=== PATIENT | male | born 1945 | race Caucasian/White ===

== ENCOUNTER 2019-03-24 09:26 | Observation (INO) ==
[2019-03-24] MEDS ORDERED: ASPIRIN 81 MG TAB.CHEW PO ONE (09:38)
[2019-03-24] MEDS: NITROGLYCERIN 0.4 MG/TAB BTL SL ONE ×2 (09:50→10:19)
[2019-03-24 09:54] LABS: Hematocrit 39.3 % (42.0-52.0); Hemoglobin 13.4 gm/dL (13.5-18.0); Mean Cell Volume 93.1 fl (78-100); Mean Corpuscular Hemoglobin 31.8 pg (27-31); Mean Corpuscular Hgb Conc 34.1 g/dl (32-36); Mean Platelet Volume 11.1 fl (8-11.3); Neutrophil # 3.4 K/mm3 (1.3-6.0); Neutrophil % 54.6 % (42-75.0); Platelet Count 224 K/mm3 (150-450); Red Blood Count 4.22 M/mm3 (4.7-6.0); Red Cell Distribution Width 13.9 % (11.5-14.0); White Blood Count 6.3 K/mm3 (4.0-10.5)
[2019-03-24 10:00] LABS: Prothrombin Time (Patient) 24.2 Seconds (9.1-10.7)
[2019-03-24 10:02] LABS: INR 2.53 INR (0.92-1.08)
[2019-03-24 10:10] LABS: ALT 21 U/L (19-67); AST 18 U/L (0-48); Albumin * 3.9 gm/dl (3.4-5.0); Alkaline Phosphatase * 72 U/L (50-170); Anion Gap 16.8 mmol/L (6.8-13.8); BUN/Creatinine Ratio 16.2 (9.0-21.6); Bilirubin, Total 0.5 mg/dL (0.0-1.1); Blood Urea Nitrogen 21 mg/dL (6-23); Ca. Corrected For Albumin 9.1 mg/dL (8.4-10.2); Calcium * 9.3 mg/dL (7.9-10.9); Carbon Dioxide 23.3 mmol/L (24-32.6); Chloride 108 mmol/L (97-106); Glucose * 135 mg/dL (70-110); Potassium 4.1 mmol/L (3.4-4.6); Sodium 144 mmol/L (132-142); Total Protein 6.9 gm/dL (6.2-8.2); Troponin I Less than 0.017 ng/mL (0.00-0.10)
--- NOTE | 2019-03-24 10:56 | ERNOTE ---
Chest Pain/Cardiac HPI Date of Service: 03/24/19 Chief Complaint: Chest Pain Time Seen by Provider: 03/24/19 09:36 Source: patient Exam Limitations: no limitations Immunizations: IMMUNIZATION HX History of Influenza Vaccine Yes Hx Pneumococcal Vaccination Yes Allergies/Adverse Reactions: Allergies simvastatin Allergy (Mild, Verified 03/24/19 09:38) BREAKS OUT Home Medications: HOME MEDICATIONS Aspirin [Aspir 81] 81 mg PO DAILY 08/20/12 [Last Taken Unknown] Pantoprazole Sodium [Protonix] 40 mg PO DAILY 04/04/15 [Last Taken Unknown] Ubidecarenone [Co Q-10] 100 mg PO DAILY 12/04/15 [Last Taken Unknown] Metoprolol Succinate [Toprol Xl] 25 mg PO DAILY 09/24/16 [Last Taken 09/29/16 16:00] Multivitamin [One Daily Essential] 1 ea PO DAILY 09/24/16 [Last Taken Unknown] Fenofibrate Nanocrystallized [Tricor] 145 mg PO DAILY 10/08/16 [Last Taken Unknown] Tamsulosin HCl [Flomax] 0.4 mg PO DAILY@1800 01/17/17 [Last Taken Unknown] Warfarin Sodium [Coumadin] 7 mg PO DAILY 05/20/17 [Last Taken Unknown] Rosuvastatin Calcium [Crestor] 40 mg PO DAILY 08/23/18 [Last Taken Unknown] alirocumab 75 mg/mL subcutaneous pen injector 75 mg SUBCUT Q14D #1 ml 03/23/19 [Last Taken Unknown] omega-3 fatty acids 1,000 mg capsule 1,000 mg PO BID 03/23/19 [Last Taken Unknown] Narrative: Patient presents to the ED for chest and arm pain. This started today. He has had some stuttering pain over the last several days. Some central pain with radiation to both arms. He thinks this is like his prior cardiac pain. Some SOB with exertion but not worse than normal. No N/V/diaphoresis. No fever or cough. No calf pain or leg swelling. Timing: other - constant since this am Severity/Quality: moderate Location: central Chest Pain Radiation: arms Activities at Onset: none Modifying Factors - Improves: Absent: antacids Modifying Factors - Worsens: Present: nothing Nitro Today/Relief: no nitro taken today Associated Symptoms: Present: shortness of breath. Absent: syncope, cough, palpitations, nausea, vomiting, abdominal pain, weakness Prior Chest Pain/Cardiac Workup: Reports: heart attack Prior Treatment: Denies: currently on antibiotics Review of Systems - Review of Systems Constitutional: Absent: fever EYE: Present: no symptoms reported ENT: Absent: nose congestion Respiratory: Present: See HPI Cardiology: Present: See HPI Gastrointestinal/Abdominal: Absent: abdominal pain Genitourinary: Absent: dysuria All Other Systems: All systems neg except as marked Medical History (Updated 03/21/19 @ 14:48 by Katrin Long [facility]) CVA (cerebral vascular accident) (Resolved) CAD (coronary artery disease) (Chronic) Vitreous hemorrhage, right eye (Acute) Onset Date: 12/06/16 Posterior vitreous detachment, right eye (Acute) Onset Date: ~12/06/16 Ischemic stroke (Acute) Onset Date: 12/06/16 Insomnia (Acute) Onset Date: Unknown Unspecified HTN (hypertension) (Chronic) Onset Date: 10/24/11 Hyperlipidemia (Chronic) Onset Date: Unknown Depression (Acute) Onset Date: Unknown Carotid occlusion, right (Acute) Onset Date: Unknown Atherosclerosis (Acute) Onset Date: Unknown Carotid AAA (abdominal aortic aneurysm) (Acute) Onset Date: 12/06/16 CVA (cerebral vascular accident) Onset Date: ~2003 After bypass Clavicle fracture Onset Date: ~1974 Measles Onset Date: Unknown Pelvic fracture Onset Date: ~1971 Rubella Onset Date: Unknown Surgical History: Surgical History (Updated 07/07/18 @ 06:27 by Maday Singh) Heart catheterization Onset Date: ~2004 History of back surgery Onset Date: ~2000 Dr. Cespedes - L5 History of esophagogastroduodenoscopy (EGD) Onset Date: 03/26/10 w/biopsy Dr. Burleson 03/16/07 Mild reflux esophagitis. 03/26/10 Benign squamous mucosa. History of stress test Onset Date: 08/31/[address] Sinus rhythm[address] No new ST-T wave changes. Normal myocardial perfusion stress test with EF of 59%. History of transesophageal echocardiography (NATASHA) Onset Date: 09/01/17 Normal. Did find a distal AAA measurement of 3.0 cm x 2.9 cm. Hx of CABG Onset Date: ~2003 Kathy - [facility] Hx of cholecystectomy Onset Date: 03/13/09 Dr. Iris anderson Hx of colonoscopy Onset Date: ~09/30/16 w/biopsy Dr. Burleson 03/16/07 Tubular adenoma. 03/26/10 Tubular adenoma, hyperplastic polyp, small internal hemorrhoid. 09/30/16 Tubular adenoma x3. Recheck 3 years. Hx of hernia repair Onset Date: 09/26/10 Dr. Simmons - left inguinal hernia w/mesh plug and patch Hx of tonsillectomy Onset Date: ~1959 Stent placement Onset Date: ~07/2014 Dr. Mitchell - [place] - Bilat legs - one stent each leg Family History: Family History (Updated 07/07/18 @ 06:31 by Maday Singh) Sister Sarcoma Tumor on leg Father , Age 83 COPD (chronic obstructive pulmonary disease) Leukemia Mother , Age 80 Cancer Breast Grandmother , (Maternal) Heart disease Grandmother , (Paternal) Heart disease Grandfather , (Maternal) Heart disease Grandfather , (Paternal) Heart disease Social History: Preferred Language [place] Smoking Status Former smoker Have you smoked in the past 12 No months Abuse History No History of abuse Psych History Hx of Depression Alcohol Use rarely Drug Use none (Last Updated 03/23/19 @ 12:17 by Chelsie Kidd MD) No Social History Section defined Physical Exam - Physical Exam General Appearance: Present: alert, no apparent distress Head Exam: Present: normal inspection, no evidence of injury Eye Exam: Normal inspection: bilateral, PERRL: bilateral Ears, Nose, Throat: Present: normal ENT inspection Neck: Present: normal inspection Respiratory: Present: no respiratory distress, normal breath sounds, no accessory muscle use, lungs clear Cardiovascular/Chest: Present: regular rate, rhythm, normal peripheral pulses Gastrointestinal/Abdominal: Present: normal bowel sounds, nontender, soft Back Exam: Present: normal range of motion Extremity Exam: Present: non-tender, normal range of motion Neurological Exam: Present: alert, no motor/sensory deficits Skin Exam: Present: normal color, warm/dry Progress - Results and Orders Patient's Lab Results:: I have reviewed the patient's lab results. - Vital Signs Patient's Vital Signs:: I have reviewed the patient's vital signs. Vital Signs: Vital Signs 03/24/19 09:27 03/24/19 09:51 03/24/19 10:07 Temperature 36.6 C 36.6 C Pulse Rate 69 65 74 Respiratory Rate 14 14 14 Blood Pressure 162/98 H 162/98 H 135/67 O2 Sat by Pulse Oximetry 100 95 97 - EKG EKG #1 EKG: NSR EKG read: Interp. by me EKG Comments: NSR rate 65. Non-specific ST/T wave changes, no clear evidence of STEMI - X-Ray X-Ray #1 X-Ray: chest Interpretation: Interp. by me X-ray Comments: I reviewed official radiology report - Progress/Reassessment Chief Complaint: Chest Pain Progress Note-Subjective: 03/24/19 10:53 patient received ASA and SL NTG X2 with resolution of his pain. He thinks this may be due to his new medication Praluent. He noted some CP with this prior as well and thinks that may be whats going on. He did however tell me that this felt like his prior cardiac pain. With his extensive cardiac history and resolution with NTG he needs r/o and elects hospital rule ou. D/W Dr Hermosillo who will place him in observation. Departure Clinical Impression: Chest pain - Departure Disposition: Still a patient Condition: Stable Referrals: Chelsie Kidd MD [Primary Care Provider] -
--- NOTE | 2019-03-24 13:30 | HP ---
Chief Complaint - Chief Complaint Date of Service: 03/24/19 Time of Service: 12:05 Chief Complaint: Bilateral arm pain and mild chest tightness History of Present Illness: 73-year-old male with a past medical history of AAA, atherosclerosis, coronary artery disease, CVA, hypertension, depression, insomnia, right carotid occlusion presents with complaints of bilateral pain. He states he gave himself an injection of a pneumatic occasion for his cholesterol last night (Praluent). He felt fine after the injection but this morning he and his went to the grocery store and he began to have severe bilateral arm pain. He describes the pain as achy, 8 out of 10. Associated with mild chest tightness. He has his to drive home because of the pain and he later presented to the emergency department. In the ER troponin was negative, EKG showed nonspecific changes. He was admitted for chest pain observation. He states his called his electrical and instrument mechanic in relation to his symptoms and the electrical and instrument mechanic told him to discontinue the Praluent. Medical History (Updated 03/24/19 @ 10:56 by Hector Best MD) CVA (cerebral vascular accident) (Resolved) CAD (coronary artery disease) (Chronic) Vitreous hemorrhage, right eye (Acute) Onset Date: 12/06/16 Posterior vitreous detachment, right eye (Acute) Onset Date: ~12/06/16 Ischemic stroke (Acute) Onset Date: 12/06/16 Insomnia (Acute) Onset Date: Unknown Unspecified HTN (hypertension) (Chronic) Onset Date: 10/24/11 Hyperlipidemia (Chronic) Onset Date: Unknown Depression (Acute) Onset Date: Unknown Carotid occlusion, right (Acute) Onset Date: Unknown Atherosclerosis (Acute) Onset Date: Unknown Carotid AAA (abdominal aortic aneurysm) (Acute) Onset Date: 12/06/16 CVA (cerebral vascular accident) Onset Date: ~2003 After bypass Clavicle fracture Onset Date: ~1974 Measles Onset Date: Unknown Pelvic fracture Onset Date: ~1971 Rubella Onset Date: Unknown Surgical History: Surgical History (Updated 07/07/18 @ 06:27 by Maday Singh) Heart catheterization Onset Date: ~2004 2003, 2004 History of back surgery Onset Date: ~2000 Dr. Cespedes - [place] History of esophagogastroduodenoscopy (EGD) Onset Date: 03/26/10 w/biopsy Dr. Burleson 03/16/07 Mild reflux esophagitis. 03/26/10 Benign squamous mucosa. History of stress test Onset Date: 08/31/16 Sinus rhythm. No new ST-T wave changes. Normal myocardial perfusion stress test with EF of 59%. History of transesophageal echocardiography (NATASHA) Onset Date: 09/01/17 Normal. Did find a distal AAA measurement of 3.0 cm x 2.9 cm. Hx of CABG Onset Date: ~2003 X2 - [facility] Hx of cholecystectomy Onset Date: 03/13/09 Dr. Simmons - Lap justin Hx of colonoscopy Onset Date: ~09/30/16 w/biopsy Dr. Burleson 03/16/07 Tubular adenoma. 03/26/10 Tubular adenoma, hyperplastic polyp, small internal hemorrhoid. 09/30/16 Tubular adenoma x3. Recheck 3 years. Hx of hernia repair Onset Date: 09/26/10 Dr. Simmons - left inguinal hernia w/mesh plug and patch Hx of tonsillectomy Onset Date: ~1959 Stent placement Onset Date: ~07/2014 Dr. Mitchell - [place] - Bilat legs - one stent each leg Family History: Family History (Updated 07/07/18 @ 06:31 by Maday Singh) Sister Sarcoma Tumor on leg Father , Age 83 COPD (chronic obstructive pulmonary disease) Leukemia Mother , Age 80 Cancer Breast Grandmother , (Maternal) Heart disease Grandmother , (Paternal) Heart disease Grandfather , (Maternal) Heart disease Grandfather , (Paternal) Heart disease Social History: Preferred Language [place] Smoking Status Former smoker Have you smoked in the past 12 No months Abuse History No History of abuse Psych History Hx of Depression Alcohol Use rarely Drug Use none (Last Updated 03/23/19 @ 12:17 by Chelsie Kidd MD) No Social History Section defined Review Of Systems (GEN) - Review of Systems Generalized/Overall Review: Absent: Fever EENTM: Absent: Eye Pain, Ear Pain Respiratory: Absent: Shortness of Breath Cardiac: Present: Other - Chest tightness. Absent: Chest Pain Abdominal: Absent: Abdominal Pain Misc: All systems neg except as marked Immunizations: IMMUNIZATION HX History of Influenza Vaccine Yes Hx Pneumococcal Vaccination Yes Allergies/Adverse Reactions: Allergies Allergy/AdvReac Type Severity Reaction Status Date / Time simvastatin Allergy Mild BREAKS OUT Verified 03/24/19 09:38 Home Medications: HOME MEDICATIONS Aspirin [Aspir 81] 81 mg PO HS 08/20/12 [Last Taken Unknown] Pantoprazole Sodium [Protonix] 40 mg PO HS 04/04/15 [Last Taken Unknown] Ubidecarenone [Co Q-10] 100 mg PO DAILY 12/04/15 [Last Taken Unknown] Metoprolol Succinate [Toprol Xl] 25 mg PO HS 09/24/16 [Last Taken 09/29/16 16:00] Multivitamin [One Daily Essential] 1 ea PO HS 09/24/16 [Last Taken Unknown] Fenofibrate Nanocrystallized [Tricor] 145 mg PO HS 10/08/16 [Last Taken Unknown] Tamsulosin HCl [Flomax] 0.4 mg PO DAILY@1800 01/17/17 [Last Taken Unknown] Warfarin Sodium [Coumadin] 6 mg PO SUTUWETHSA@2100 05/20/17 [Last Taken Unknown] Rosuvastatin Calcium [Crestor] 40 mg PO HS 08/23/18 [Last Taken Unknown] alirocumab 75 mg/mL subcutaneous pen injector 75 mg SUBCUT Q14D #1 ml 03/23/19 [Last Taken Unknown] omega-3 fatty acids 1,000 mg capsule 1,000 mg PO BID 03/23/19 [Last Taken Unknown] Warfarin Sodium [Coumadin] 9 mg PO MOFR@209903/24/19 [Last Taken Unknown] Exam - Exam Vital Signs: Vital Signs - Last Taken Temp 36.6 C 03/24/19 09:51 Pulse 61 03/24/19 10:30 Resp 15 03/24/19 10:30 BP 129/70 03/24/19 10:30 Pulse Ox 97 03/24/19 10:30 Constitutional: Present: Alert, Cooperative, Well developed, Well nourished, No distress ENT Exam: Present: hearing grossly normal Eye Exam: bilateral eye: normal inspection Neck: Present: non-tender, supple, trachea midline. Absent: lymphadenopathy (R), lymphadenopathy (L) Back Exam: Present: normal inspection, no CVA tenderness, no vertebral tenderness Respiratory: Present: lungs clear, no respiratory distress, no accessory muscle use, No wheezing. Absent: rhonchi Cardiovascular/Chest: Present: normal peripheral pulses, regular rate, rhythm, no edema, no murmur Peripheral Pulses: dorsalis-pedis (R): 1+, dorsalis-pedis (L): 1+ Abdomen: Present: Normal bowel sounds, soft, nontender Extremity: Present: no pedal edema Skin Exam: Present: normal color, warm/dry Neurologic: Present: alert, normal mood/affect Appearance: Present: appropriate appearance, appropriate insight Eye contact: Present: cooperative Thoughts: Present: normal thought pattern, normal mood /affect Diagnostic Studies: Abnormal Lab Results 03/24/19 03/24/19 03/24/19 Range/Units 09:46 09:46 09:46 RBC 4.22 L (4.7-6.0) M/mm3 Hgb 13.4 L (13.5-18.0) gm/dL Hct 39.3 L (42.0-52.0) % MCH 31.8 H (27-31) pg Eosinophils % 3.7 H (0.0-3.0) % PT 24.2 H (9.1-10.7) Seconds INR (Anticoag Therapy) 2.53 H (0.92-1.08) INR Sodium 144 H (132-142) mmol/L Plasma Sodium 145 H (130-142) mmol/L Chloride 108 H (97-106) mmol/L Carbon Dioxide 23.3 L (24-32.6) mmol/L Anion Gap 16.8 H (6.8-13.8) mmol/L Est GFR (Non-Af Amer) 58 L D (60-130) mL/min Random Glucose 135 H (70-110) mg/dL Laboratory Results WBC 6.3 K/mm3 (4.0-10.5) 03/24/19 09:46 RBC 4.22 M/mm3 (4.7-6.0) L 03/24/19 09:46 Hgb 13.4 gm/dL (13.5-18.0) L 03/24/19 09:46 Hct 39.3 % (42.0-52.0) L 03/24/19 09:46 MCV 93.1 fl (78-100) 03/24/19 09:46 MCH 31.8 pg (27-31) H 03/24/19 09:46 MCHC 34.1 g/dl (32-36) 03/24/19 09:46 RDW 13.9 % (11.5-14.0) 03/24/19 09:46 Plt Count 224 K/mm3 (150-450) 03/24/19 09:46 MPV 11.1 fl (8-11.3) 03/24/19 09:46 Immature Gran % (Auto) 0.30 % (0.001-0.429) 03/24/19 09:46 Immature Gran # (Auto) 0.02 K/mm3 (0.000-0.0310) 03/24/19 09:46 54.6 % (42-75.0) 03/24/19 09:46 32.2 % (20-51) 03/24/19 09:46 8.4 % (0.0-9) 03/24/19 09:46 3.7 % (0.0-3.0) H 03/24/19 09:46 0.8 % (0.0-1.0) 03/24/19 09:46 Nucleated RBC % 0.0 k/mm3 (0-1) 03/24/19 09:46 3.4 K/mm3 (1.3-6.0) 03/24/19 09:46 2.02 k/mm3 (1.5-3.5) 03/24/19 09:46 0.5 k/mm3 (0.0-1.0) 03/24/19 09:46 0.2 k/mm3 (0.0-0.7) 03/24/19 09:46 Absolute Basophils 0.1 k/mm3 (0.0-0.1) 03/24/19 09:46 PT 24.2 Seconds (9.1-10.7) H 03/24/19 09:46 INR (Anticoag Therapy) 2.53 INR (0.92-1.08) H 03/24/19 09:46 Sodium 144 mmol/L (132-142) H 03/24/19 09:46 145 mmol/L (130-142) H 03/24/19 09:46 Potassium 4.1 mmol/L (3.4-4.6) 03/24/19 09:46 Chloride 108 mmol/L (97-106) H 03/24/19 09:46 Carbon Dioxide 23.3 mmol/L (24-32.6) L 03/24/19 09:46 16.8 mmol/L (6.8-13.8) H 03/24/19 09:46 BUN 21 mg/dL (6-23) 03/24/19 09:46 1.30 mg/dL (0.4-1.4) 03/24/19 09:46 Est GFR (Non-Af Amer) 58 mL/min (60-130) L D 03/24/19 09:46 16.2 (9.0-21.6) 03/24/19 09:46 135 mg/dL (70-110) H 03/24/19 09:46 Calcium 9.3 mg/dL (7.9-10.9) 03/24/19 09:46 Calcium Adj for Albumin 9.1 mg/dL (8.4-10.2) 03/24/19 09:46 0.5 mg/dL (0.0-1.1) 03/24/19 09:46 AST 18 U/L (0-48) 03/24/19 09:46 ALT 21 U/L (19-67) 03/24/19 09:46 72 U/L (50-170) 03/24/19 09:46 Less than 0.017 ng/mL (0.00-0.10) 03/24/19 09:46 6.9 gm/dL (6.2-8.2) 03/24/19 09:46 3.9 gm/dl (3.4-5.0) 03/24/19 09:46 Assessment/Plan - Narrative Narrative: 73-year-old male with a past medical history of AAA, atherosclerosis, coronary artery disease, CVA, hypertension, depression, insomnia, right carotid occlusion presents with complaints of bilateral pain. He states he gave himself an injection of a pneumatic occasion for his cholesterol last night (Praluent). He felt fine after the injection but this morning he and his went to the grocery store and he began to have severe bilateral arm pain. He describes the pain as achy, 8 out of 10. Associated with mild chest tightness. He has his to drive home because of the pain and he later presented to the emergency department. In the ER troponin was negative, EKG showed nonspecific changes. He was admitted for chest pain observation. He states his called his electrical and instrument mechanic in relation to his symptoms and the electrical and instrument mechanic told him to discontinue the Praluent. - Assessment/Plan (1) Chest pain Assessment: At this time he states his chest tightness has resolved and his arm pain has resolved. He received 2 doses of nitroglycerin in the emergency department. His electrical and instrument mechanic has told him to discontinue the Praluent. Trend troponins. Continue with telemetry. Problem: Acute (2) Bilateral arm pain Assessment: Likely secondary to Praluent. His has been touch with his electrical and instrument mechanic and he was told to discontinue the Praluent. Problem: Acute (3) GERD (gastroesophageal reflux disease) Problem: Chronic Qualifiers: (4) HTN (hypertension) Assessment: Stable resume home meds. Problem: Chronic Qualifiers: Hypertension type: essential hypertension (5) Hyperlipidemia Assessment: Stable resume home meds except for Praluent. His electrical and instrument mechanic wants him to discontinue it due to the bilateral arm pain he experienced today.. Problem: Chronic Qualifiers:
[2019-03-24] MEDS ORDERED: LISINOPRIL 5 MG TABLET PO SCH (16:15)
[2019-03-24] MEDS ORDERED: TAMSULOSIN HCL 0.4 MG CAP.SR.24H PO SCH (18:00)
[2019-03-24] MEDS ORDERED: LISINOPRIL 10 MG TABLET PO ONE (19:00)
[2019-03-24] MEDS: OMEGA-3 FATTY ACIDS 1 CAP CAPSULE PO SCH (20:22)
[2019-03-24] MEDS ORDERED: ROSUVASTATIN CALCIUM 20 MG TABLET PO SCH (21:00)
[2019-03-24] MEDS ORDERED: WARFARIN SODIUM 1 MG TABLET PO ONE (21:00)
[2019-03-24] MEDS ORDERED: FENOFIBRATE,MICRONIZED 134 MG CAPSULE PO SCH (21:00)
[2019-03-24] MEDS ORDERED: PANTOPRAZOLE SODIUM 40 MG TABLET.EC PO SCH (21:00)
[2019-03-24] MEDS ORDERED: MULTIVITAMINS 1 CAP CAPSULE PO SCH (21:00)
[2019-03-24] MEDS ORDERED: WARFARIN SODIUM PO SCH ×2 (21:00)
[2019-03-24] MEDS ORDERED: ASPIRIN 81 MG TABLET.DR PO SCH (21:00)
[2019-03-24] MEDS ORDERED: METOPROLOL SUCCINATE 25 MG TABLET.SA PO SCH (21:00)
[2019-03-25 05:46] LABS: Hematocrit 39.2 % (42.0-52.0); Mean Corpuscular Hemoglobin 31.2 pg (27-31); Mean Corpuscular Hgb Conc 33.2 g/dl (32-36); Mean Platelet Volume 10.9 fl (8-11.3); Neutrophil # 3.4 K/mm3 (1.3-6.0); Neutrophil % 49.2 % (42-75.0); Platelet Count 216 K/mm3 (150-450); Red Blood Count 4.17 M/mm3 (4.7-6.0); White Blood Count 6.9 K/mm3 (4.0-10.5)
[2019-03-25 06:09] LABS: Prothrombin Time (Patient) 25.5 Seconds (9.1-10.7)
[2019-03-25 06:14] LABS: Albumin * 3.6 gm/dl (3.4-5.0); Anion Gap 13.3 mmol/L (6.8-13.8); BUN/Creatinine Ratio 14.1 (9.0-21.6); Bilirubin, Total 0.5 mg/dL (0.0-1.1); Ca. Corrected For Albumin 8.9 mg/dL (8.4-10.2); Calcium * 8.9 mg/dL (7.9-10.9); Carbon Dioxide 25.9 mmol/L (24-32.6); Potassium 4.2 mmol/L (3.4-4.6); Total Protein 6.6 gm/dL (6.2-8.2)
[2019-03-25 06:21] LABS: INR 2.68 INR (0.92-1.08)
--- NOTE | 2019-03-25 08:23 | DS ---
(1) Chest pain Problem: Resolved (2) CAD (coronary artery disease) Problem: Chronic Qualifiers: Coronary Disease-Associated Artery/Lesion type: [place] artery [place] vs. transplanted heart: [place] heart Associated angina: without angina Qualified Code(s): I25.10 - Atherosclerotic heart disease of [place] coronary artery without angina pectoris (3) GERD (gastroesophageal reflux disease) Problem: Chronic Qualifiers: (4) HTN (hypertension) Problem: Chronic Qualifiers: Hypertension type: essential hypertension (5) CVA (cerebral vascular accident) Problem: Resolved Qualifiers: CVA mechanism: unspecified Qualified Code(s): I63.9 - Cerebral infarction, unspecified (6) AAA (abdominal aortic aneurysm) Problem: Chronic (7) Carotid occlusion, right Problem: Chronic Description of Stay: Solo Anthony is a 73-year-old male with a past medical history of AAA, atherosclerosis, coronary artery disease, CVA, hypertension, depression, insomnia, right carotid occlusion who was admitted on 03/24/2019 with complaints of bilateral arm pain. He states he gave himself an injection for his cholesterol last night (Praluent). He felt fine after the injection but this morning he and his went to the grocery store and he began to have severe bilateral arm pain. He described the pain as achy, 8 out of 10. Associated with mild chest tightness. He had his drive home because of the pain and then later went to our emergency department. In the ER troponin was negative, EKG showed nonspecific changes. He was admitted for chest pain observation. His called his shank breaker in relation to his symptoms and the shank breaker told him to discontinue the Praluent. as it can cause chest tightness and throat and trouble with breathing. His second set of troponin and EKG showed no changes and he has been chest pain freee overnight. He had a stress test by his shank breaker last July 2018 and was normal. He is stable to be discharged and to follow up with his PCP and shank breaker. Procedures Performed: none Results and Findings: Lab Pending Results 03/24/19 09:46: WBC 6.3, RBC 4.22 L, Hgb 13.4 L, Hct 39.3 L, MCV 93.1, MCH 31.8 H, MCHC 34.1, RDW 13.9, Plt Count 224, MPV 11.1, Immature Gran % (Auto) 0.30, Immature Gran # (Auto) 0.02, Neutrophils % 54.6, Lymphocytes % 32.2, Monocytes % 8.4, Eosinophils % 3.7 H, Basophils % 0.8, Nucleated RBC % 0.0, Neutrophils # 3.4, Lymphocytes # 2.02, Monocytes # 0.5, Eosinophils # 0.2, Absolute Basophils 0.1 03/24/19 09:46: Sodium 144 H, Plasma Sodium 145 H, Potassium 4.1, Chloride 108 H, Carbon Dioxide 23.3 L, Anion Gap 16.8 H, BUN 21, Creatinine 1.30, Est GFR (Non-Af Amer) 58 L D, BUN/Creatinine Ratio 16.2, Random Glucose 135 H, Calcium 9.3, Calcium Adj for Albumin 9.1, Total Bilirubin 0.5, AST 18, ALT 21, Alkaline Phosphatase 72, Troponin I Less than 0.017, Total Protein 6.9, Albumin 3.9 03/24/19 09:46: PT 24.2 H, INR (Anticoag Therapy) 2.53 H 03/24/19 16:15: Troponin I Less than 0.017 03/25/19 05:43: PT 25.5 H, INR (Anticoag Therapy) 2.68 H 03/25/19 05:43: WBC 6.9, RBC 4.17 L, Hgb 13.0 L, Hct 39.2 L, MCV 94.0, MCH 31.2 H, MCHC 33.2, RDW 14.0, Plt Count 216, MPV 10.9, Immature Gran % (Auto) 0.30, Immature Gran # (Auto) 0.02, Neutrophils % 49.2, Lymphocytes % 33.1, Monocytes % 12.0 H, Eosinophils % 4.5 H, Basophils % 0.9, Nucleated RBC % 0.0, Neutrophils # 3.4, Lymphocytes # 2.30, Monocytes # 0.8, Eosinophils # 0.3, Absolute Basophils 0.1 03/25/19 05:43: Sodium 143 H, Plasma Sodium 143 H, Potassium 4.2, Chloride 108 H, Carbon Dioxide 25.9, Anion Gap 13.3, BUN 21, Creatinine 1.49 H, Est GFR (Non- Af Amer) 49 L, BUN/Creatinine Ratio 14.1, Random Glucose 106, Calcium 8.9, Calcium Adj for Albumin 8.9, Total Bilirubin 0.5, AST 20, ALT 20, Alkaline Phosphatase 60, Total Protein 6.6, Albumin 3.6 Discharge Location: Home Disposition: Home self-care Condition: Stable Discharge Activity: Activity as tolerated Discharge Diet: Low salt, Low fat/chol Referrals: Chelsie Kidd MD [Primary Care Provider] - Additional Patient Instructions (free text): -Please make TCM appointment unless senior care discharge. Thank you! Vonda @ [phone]. Follow up with is PCP. in 1 week. Complete Home Medications List: Complete Home Medication List: Aspirin [Aspir 81] 81 mg PO HS 08/20/12 Ubidecarenone [Co Q-10] 100 mg PO DAILY 12/04/15 Metoprolol Succinate [Toprol Xl] 25 mg PO HS 09/24/16 Multivitamin [One Daily Essential] 1 ea PO HS 09/24/16 Fenofibrate Nanocrystallized [Tricor] 145 mg PO HS 10/08/16 Tamsulosin HCl [Flomax] 0.4 mg PO DAILY@1800 01/17/17 Warfarin Sodium [Coumadin] 6 mg PO SUTUWETHSA@209905/20/17 Rosuvastatin Calcium [Crestor] 40 mg PO HS 08/23/18 omega-3 fatty acids 1,000 mg capsule 1,000 mg PO BID 03/23/19 Warfarin Sodium [Coumadin] 9 mg PO MOFR@209903/24/19
[2019-03-25] MEDS: OMEGA-3 FATTY ACIDS 1 CAP CAPSULE PO SCH (08:24)
[2019-03-25 08:57] VITALS: BP 120/56
[2019-03-25] MEDS ORDERED: LISINOPRIL 10 MG TABLET PO ONE (18:17)
[2019-03-25] MEDS ORDERED: WARFARIN SODIUM 6 MG TABLET PO SCH (21:00)
[2019-03-25] MEDS ORDERED: UBIDECARENONE 100 MG PO SCH (21:00)
== END 2019-03-25 09:10 | disposition home or self-care (01) ==
LOC: ER 09:26 → MS 09:26
PROVIDERS: ADMIT Internal Medicine; ATTEND Internal Medicine
DX: I10 Essential (primary) hypertension; R07.9 Chest pain, unspecified; K21.9 Gastro-esophageal reflux disease without esophagitis; I71.4 Abdominal aortic aneurysm, without rupture; I25.10 Atherosclerotic heart disease of native coronary artery without angina pectoris; I65.21 Occlusion and stenosis of right carotid artery; I63.9 Cerebral infarction, unspecified
CPT/HCPCS: 36415; 71020; 71046; 80053; 84484; 85025; 85610; 93005; 99285; G0378